=== PATIENT | male | born 1990 | race African-American/Black ===

== ENCOUNTER 2017-06-27 18:41 | Inpatient (IN) | payer SELFPAY ==
[~2017-06-27] VITALS: Ht 177.8 cm; Wt 116.9 kg
[2017-06-27] VITALS (7 sets, daily range): BP systolic 138–220; BP diastolic 72–113; PULSE 62–74; RESP 16–22; TEMP 98.7–99.9; O2SAT 95–100
[~2017-06-27 18:41] MED LIST: CEPH-460 PO
[2017-06-27] MEDS ORDERED: ONDANSETRON HCL 4 MG/2 ML VIAL ONE (19:10)
--- NOTE | 2017-06-27 19:12 | PD ---
HPI Chief Complaint: Cold / Flu Symptoms Time Seen by Provider: 18:55 Travel History International Travel<30 days: No Contact w/Intl Traveler<30days: No Traveled to known affect area: No History of Present Illness HPI Patient is a 26-year-old male presenting to the emergency department for evaluation of cold and flu symptoms. Patient presents with 1 week of a sore throat, nasal congestion, shortness of breath. He denies any documented fevers. He reports nausea but no vomiting, abdominal pain, diarrhea, headache. He states that he can barely swallow, and reports decreased appetite. Symptom onset was gradual, symptoms are severe in nature. No alleviating factors. Patient reports a history of hypertension, currently on no medications. [facility] Past Medical History ADD: Yes ADHD: Yes Headaches: Yes Hypertension: Yes Social History Alcohol Use: No (DENIES ETOH ) Tobacco Use: Yes Substance Use: No (DENIES SUBSTANCE ABUSE ) Allergies-Medications (Allergen,Severity, Reaction): Coded Allergies: No Known Allergies (Verified Adverse Reaction, Unknown, 06/27/17) Reported Meds & Prescriptions Reported Meds & Active Scripts Active No Active Prescriptions or Reported Medications Review of Systems Except as stated in HPI: all other systems reviewed are Neg General / Constitutional: Positive: Chills HENT: Positive: Sore Throat, Rhinitis, Congestion, No: Headaches, Neck Pain Cardiovascular: No: Chest Pain or Discomfort Respiratory: Positive: Cough, Shortness of Breath Gastrointestinal: Positive: Nausea, No: Vomiting, Abdominal Pain Genitourinary: No: Dysuria Musculoskeletal: No: Myalgias Physical Exam Narrative GENERAL: Well-developed, well-nourished, alert -[place] male. Presenting in no acute distress. SKIN: Warm and dry. HEAD: Atraumatic. Normocephalic. EYES: Pupils equal and round. No scleral icterus. No injection or drainage. ENT: No nasal bleeding or discharge. Mucous membranes pink and moist. 3+ tonsillar hypertrophy, tonsils are touching the uvula, erythema and exudates noted. No stridor noted on exam. NECK: Trachea midline. No JVD. Positive cervical lymphadenopathy CARDIOVASCULAR: Regular rate and rhythm. RESPIRATORY: No accessory muscle use. Clear to auscultation. Breath sounds equal bilaterally. GASTROINTESTINAL: Abdomen soft, non-tender, nondistended. Hepatic and splenic margins not palpable. MUSCULOSKELETAL: Extremities without clubbing, cyanosis, or edema. No obvious deformities. NEUROLOGICAL: Awake and alert. No obvious cranial nerve deficits. Motor grossly within normal limits. Five out of 5 muscle strength in the arms and legs. Normal speech. PSYCHIATRIC: Appropriate mood and affect; insight and judgment normal. Data Data Last Documented VS Vital Signs Date Time Temp Pulse Resp B/P (MAP) Pulse Ox O2 Delivery O2 Flow Rate FiO2 06/27/17 20:35 62 16 138/83 (101) 98 Room Air 06/27/17 18:47 99.9 Orders Orders Complete Blood Count With Diff (06/27/17 19:01) Group A Rapid Strep Screen (06/27/17 19:01) Ct Soft Tiss Neck W Iv Cont (06/27/17 19:01) Dexamethasone Inj (Decadron Inj) (06/27/17 19:15) Sodium Chloride 0.9% Flush (Ns Flush) (06/27/17 19:15) Comprehensive Metabolic Panel (06/27/17 19:01) Sodium Chlor 0.9% 1000 Ml Inj (Ns 1000 M (06/27/17 19:15) Ibuprofen Liq (Motrin Liq) (06/27/17 19:15) Iv Access Insert/Monitor (06/27/17 19:03) Ecg Monitoring (06/27/17 19:03) Oximetry (06/27/17 19:03) Sodium Chloride 0.9% Flush (Ns Flush) (06/27/17 19:15) Ondansetron Inj (Zofran Inj) (06/27/17 19:15) Ondansetron Inj (Zofran Inj) (06/27/17 19:10) Strep Culture (Group A) (06/27/17 19:20) Monoscreen (06/27/17 20:15) Iohexol 350 Inj (Omnipaque 350 Inj) (06/27/17 21:05) Clindamycin 900 Mg/Ns Premix (Cleocin 90 (06/27/17 21:30) Admit Order (Ed Use Only) (06/27/17 21:49) Labs Laboratory Tests Test 06/27/17 19:20 06/27/17 19:29 Blood Urea Nitrogen 5 MG/DL Creatinine 0.98 MG/DL Random Glucose 100 MG/DL Total Protein 8.2 GM/DL Albumin 3.9 GM/DL Calcium Level 9.6 MG/DL Alkaline Phosphatase 69 U/L Aspartate Amino Transf (AST/SGOT) 22 U/L Alanine Aminotransferase (ALT/SGPT) 25 U/L Total Bilirubin 0.7 MG/DL Sodium Level 139 MEQ/L Potassium Level 3.7 MEQ/L Chloride Level 103 MEQ/L Carbon Dioxide Level 28.2 MEQ/L Anion Gap 8 MEQ/L Estimat Glomerular Filtration Rate 111 ML/MIN White Blood Count 7.6 TH/MM3 Red Blood Count 5.16 MIL/MM3 Hemoglobin 15.1 GM/DL Hematocrit 44.9 % Mean Corpuscular Volume 86.9 FL Mean Corpuscular Hemoglobin 29.2 PG Mean Corpuscular Hemoglobin Concent 33.6 % Red Cell Distribution Width 13.5 % Platelet Count 163 TH/MM3 Mean Platelet Volume 8.5 FL Neutrophils (%) (Auto) 69.1 % Lymphocytes (%) (Auto) 14.1 % Monocytes (%) (Auto) 15.2 % Eosinophils (%) (Auto) 1.2 % Basophils (%) (Auto) 0.4 % Neutrophils # (Auto) 5.2 TH/MM3 Lymphocytes # (Auto) 1.1 TH/MM3 Monocytes # (Auto) 1.1 TH/MM3 Eosinophils # (Auto) 0.1 TH/MM3 Basophils # (Auto) 0.0 TH/MM3 CBC Comment DIFF FINAL Differential Comment MDM Medical Decision Making Medical Screen Exam Complete: Yes Emergency Medical Condition: Yes Interpretation(s) Vital Signs Last Impressions Neck CT 06/27/17 1901 Signed Impressions: Service Date/Time: Tuesday, June 27, 2017 20:55 - CONCLUSION: 1. Tonsillar hypertrophy without focal mass or abscess. 2. Cervical lymphadenopathy is identified diffusely. 3. Mild prevertebral edema identified. Soto Maza MD Laboratory Tests Test 06/27/17 19:20 06/27/17 19:29 Blood Urea Nitrogen 5 MG/DL Creatinine 0.98 MG/DL Random Glucose 100 MG/DL Total Protein 8.2 GM/DL Albumin 3.9 GM/DL Calcium Level 9.6 MG/DL Alkaline Phosphatase 69 U/L Aspartate Amino Transf (AST/SGOT) 22 U/L Alanine Aminotransferase (ALT/SGPT) 25 U/L Total Bilirubin 0.7 MG/DL Sodium Level 139 MEQ/L Potassium Level 3.7 MEQ/L Chloride Level 103 MEQ/L Carbon Dioxide Level 28.2 MEQ/L Anion Gap 8 MEQ/L Estimat Glomerular Filtration Rate 111 ML/MIN White Blood Count 7.6 TH/MM3 Red Blood Count 5.16 MIL/MM3 Hemoglobin 15.1 GM/DL Hematocrit 44.9 % Mean Corpuscular Volume 86.9 FL Mean Corpuscular Hemoglobin 29.2 PG Mean Corpuscular Hemoglobin Concent 33.6 % Red Cell Distribution Width 13.5 % Platelet Count 163 TH/MM3 Mean Platelet Volume 8.5 FL Neutrophils (%) (Auto) 69.1 % Lymphocytes (%) (Auto) 14.1 % Monocytes (%) (Auto) 15.2 % Eosinophils (%) (Auto) 1.2 % Basophils (%) (Auto) 0.4 % Neutrophils # (Auto) 5.2 TH/MM3 Lymphocytes # (Auto) 1.1 TH/MM3 Monocytes # (Auto) 1.1 TH/MM3 Eosinophils # (Auto) 0.1 TH/MM3 Basophils # (Auto) 0.0 TH/MM3 CBC Comment DIFF FINAL Differential Comment Date Time Temp Pulse Resp B/P (MAP) Pulse Ox O2 Delivery O2 Flow Rate FiO2 06/27/17 20:35 62 16 138/83 (101) 98 Room Air 06/27/17 20:00 62 18 179/79 (112) 99 Room Air 06/27/17 19:45 99 Room Air 06/27/17 19:40 65 20 178/97 (124) 99 Room Air 06/27/17 18:47 99.9 74 22 220/113 (148) 95 Differential Diagnosis Strep pharyngitis versus abscess versus viral syndrome versus metabolic abnormality versus respiratory compromise versus other Narrative Course Patient is a 26-year-old male presenting to emergency department for evaluation of cold and flulike symptoms. On exam patient's tonsils are touching the uvula and are erythematous with exudates. Patient has a low-grade temp and is hypertensive. Labs and imaging ordered and pending. Solu-Medrol, Zofran, IV fluids and liquid ibuprofen ordered. CBC with elevated monocytes at 15.2 Chemistry with no acute findings. Rapid strep is negative CT of the neck shows tonsillar hypertrophy without focal mass or abscess. Cervical lymphadenopathy is identified diffusely. Mild prevertebral edema is identified. Clindamycin 900 mg IV 1 dose has been ordered. Discussed findings with my attending physician, we will admit to medicine, placing patient in the intensive care unit to monitor airway. Discussed findings and plan of care with patient and his mother, patient is agreeable to stay. Patient's blood pressure has trended down. Diagnosis Primary Impression: Acute suppurative tonsillitis Additional Impression: Airway compromise Admitting Information Admitting Physician Requests: Admit Scripts No Active Prescriptions or Reported Meds Condition: Stable Audra Preciado [facility] Jun 27, 2017 19:12
[2017-06-27] MEDS ORDERED: ONDANSETRON HCL 4 MG/2 ML VIAL IV PUSH ONE (19:15)
[2017-06-27] MEDS ORDERED: IBUPROFEN SUSP 100 MG/5 ML UDC PO ONE (19:15)
[2017-06-27] MEDS ORDERED: SODIUM CHLOR 0.9% 1000 ML INJ 1,000 ML IV ONE (19:15)
[2017-06-27] MEDS ORDERED: DEXAMETHASONE SOD PHOS 4 MG/ML VIAL IV PUSH ONE (19:15)
[2017-06-27] MEDS ORDERED: SODIUM CHLORIDE 0.9% FLUSH 10 ML FLUSH IVF PRN (19:15)
[2017-06-27] MEDS ORDERED: SODIUM CHLORIDE 0.9% FLUSH 10 ML FLUSH IV FLUSH PRN ×2 (19:15→22:15)
[2017-06-27 19:52] LABS: AUTOMATED NEUTROPHIL # 5.2 TH/MM3 (1.8-7.7); BASOPHIL % 0.4 % (0.0-2.0); EOSINOPHIL # 0.1 TH/MM3 (0-0.4); EOSINOPHIL % 1.2 % (0.0-4.0); HEMATOCRIT 44.9 % (39.0-51.0); HEMOGLOBIN 15.1 GM/DL (13.0-17.0); LYMPH % 14.1 % (9.0-44.0); LYMPHOCYTE # 1.1 TH/MM3 (1.0-4.8); MEAN CELL VOLUME 86.9 FL (80.0-100.0); MEAN CORPUSCULAR HEMOGLOBIN 29.2 PG (27.0-34.0); MEAN CORPUSCULAR HGB CONC 33.6 % (32.0-36.0); MEAN PLATELET VOLUME 8.5 FL (7.0-11.0); MONO % 15.2 % (0.0-8.0); MONOCYTE # 1.1 TH/MM3 (0-0.9); NEUT % 69.1 % (16.0-70.0); PLATELET COUNT 163 TH/MM3 (150-450); RED BLOOD COUNT 5.16 MIL/MM3 (4.50-5.90); RED CELL DISTRIBUTION WIDTH 13.5 % (11.6-17.2); WHITE BLOOD COUNT 7.6 TH/MM3 (4.0-11.0)
[2017-06-27 20:18] LABS: ALBUMIN 3.9 GM/DL (3.4-5.0); AST (GOT) 22 U/L (15-37); BICARBONATE 28.2 MEQ/L (21.0-32.0); BLOOD UREA NITROGEN 5 MG/DL (7-18); CALCIUM 9.6 MG/DL (8.5-10.1); CHLORIDE 103 MEQ/L (98-107); CREATININE 0.98 MG/DL (0.60-1.30); GLOMERULAR FILTRATION RATE 111 ML/MIN (>89); GLUCOSE,RANDOM 100 MG/DL (74-106); SODIUM (NA) 139 MEQ/L (136-145)
[2017-06-27 20:19] LABS: ALT (GPT) 25 U/L (12-78)
[2017-06-27 20:21] LABS: ALKALINE PHOSPHATASE 69 U/L (45-117); TOTAL BILIRUBIN ADULT 0.7 MG/DL (0.2-1.0); TOTAL PROTEIN 8.2 GM/DL (6.4-8.2)
[2017-06-27] MEDS ORDERED: IOHEXOL 350 MG/ML 10 ML VIAL (for RAD DIAG) IVCONTRAST ONE (21:05)
--- NOTE | 2017-06-27 21:13 | RADRPT ---
EXAM DATE/TIME: 06/27/2017 20:55 [place] COMPARISON: No previous studies available for comparison. INDICATIONS : Sore throat IV CONTRAST: 95 cc Omnipaque 350 (iohexol) IV RADIATION DOSE: 16.39 CTDIvol (mGy) MEDICAL HISTORY : Hypertension. SURGICAL HISTORY : None. ENCOUNTER: Initial ACUITY: 1 day PAIN SCALE: 7/10 LOCATION: throat TECHNIQUE: Volumetric scanning of the neck was performed. Using automated exposure control and adjustment of th e mA and/or kV according to patient size, radiation dose was kept as low as reasonably achievable to obtain optimal diagnostic quality images. DICOM format image data is available electronically for r eview and comparison. FINDINGS: NASOPHARYNX: There is marked adenoidal hypertrophy without focal mass. OROPHARYNX: The intrinsic muscles of the tongue are symmetric. The tonsillar pillars are enlarged bilaterally. T here is prevertebral edema identified with edema in the retropharyngeal soft tissues. LARYNX: The supraglottic, glottic, and infraglottic structures are intact. PARAPHARYNGEAL: The parapharyngeal space is intact. SALIVARY GLANDS: The parotid and submandibular glands are intact. LYMPH NODES: Bilateral cervical adenopathy up to 2.4 cm on the left and 1.9 cm in short axis dimension on the righ t. THYROID: Homogeneous enhancement without evidence of nodule. BONES: Unremarkable. CONCLUSION: 1. Tonsillar hypertrophy without focal mass or abscess. 2. Cervical lymphadenopathy is identified diffusely. 3. Mild prevertebral edema identified. Soto Maza MD on June 27, 2017 at 21:08 Board Certified Radiologist. This report was verified electronically.
[2017-06-27] MEDS ORDERED: CLINDAMYCIN 900 MG/NS PREMIX 50 ML IV ONE (21:30)
[2017-06-27] MEDS ORDERED: SODIUM CHLOR 0.9% 1000 ML INJ 1,000 ML IV SCH (22:04)
[2017-06-27 22:15] LABS: MONOSCREEN NEG (NEG)
[2017-06-27] MEDS ORDERED: NALOXONE HCL 0.4 MG/ML AMP IV PUSH PRN (22:15)
[2017-06-27] MEDS ORDERED: ONDANSETRON HCL 4 MG/2 ML VIAL IVP PRN (22:15)
[2017-06-27] MEDS: FAMOTIDINE 20 MG/2 ML VIAL IV PUSH SCH (22:43)
--- NOTE | 2017-06-27 23:25 | HHI.HP ---
[facility]ician No Primary Care Physician Admission Diagnosis Tonsillitis, risk for airway compromise Diagnoses: Travel History International Travel<30 Days: No Contact w/Intl Traveler <30 Da: No Traveled to Known Affected Are: No History of Present Illness 26-year-old male with no significant past medical history presents to the emergency department for evaluation of a sore throat. The patient reports symptoms started approximately 4 days ago and have progressively worsened. The patient states that last night his throat felt as though he was closing and he started having difficulty breathing. He is able to swallow but is also spitting and drooling. The patient denies subjective fever/chills. Endorses an associated cough productive of green sputum. His voice is muffled. He denies any chest pain or shortness of breath. Denies abdominal pain. No nausea /vomiting/diarrhea. Review of Systems Except as stated in HPI: all other systems reviewed are Neg Past Family Social History Past Medical History None Past Surgical History Left hip repair Reported Medications Reported Meds & Active Scripts Active No Active Prescriptions or Reported Medications Allergies: Coded Allergies: No Known Allergies (Verified Allergy, Unknown, 06/27/17) Family History Mother with diabetes mellitus Social History Denies alcohol, tobacco and illicit drugs Physical Exam Vital Signs Vital Signs Date Time Temp Pulse Resp B/P (MAP) Pulse Ox O2 Delivery O2 Flow Rate FiO2 06/27/17 22:00 68 16 156/76 (102) 98 Room Air 06/27/17 20:35 62 16 138/83 (101) 98 Room Air 06/27/17 20:00 62 18 179/79 (112) 99 Room Air 06/27/17 19:45 99 Room Air 06/27/17 19:40 65 20 178/97 (124) 99 Room Air 06/27/17 18:47 99.9 74 22 220/113 (148) 95 Physical Exam GENERAL: male sitting up in bed SKIN: No rashes, ecchymoses or lesions. Cool and dry. HEAD: Atraumatic. Normocephalic. No temporal or scalp tenderness. EYES: Pupils equal round and reactive. Extraocular motions intact. No scleral icterus. No injection or drainage. ENT: Nose without bleeding, purulent drainage or septal hematoma. Throat with 3 + tonsillar hypertrophy. No exudate noted. No stridor on exam however the patient does have a muffled voice and is spitting some of his secretions. NECK: Trachea midline. No JVD or lymphadenopathy. Supple, nontender, no meningeal signs. CARDIOVASCULAR: Regular rate and rhythm without murmurs, gallops, or rubs. RESPIRATORY: Clear to auscultation. Breath sounds equal bilaterally. No wheezes , rales, or rhonchi. GASTROINTESTINAL: Abdomen soft, non-tender, nondistended. No hepato-splenomegaly , or palpable masses. No guarding. MUSCULOSKELETAL: Extremities without clubbing, cyanosis, or edema. No joint tenderness, effusion, or edema noted. No calf tenderness. NEUROLOGICAL: Awake and alert. Cranial nerves II through XII intact. Motor and sensory grossly within normal limits. Normal speech. Laboratory Laboratory Tests Test 06/27/17 19:20 06/27/17 19:29 06/27/17 21:25 Blood Urea Nitrogen 5 Creatinine 0.98 Random Glucose 100 Total Protein 8.2 Albumin 3.9 Calcium Level 9.6 Alkaline Phosphatase 69 Aspartate Amino Transf (AST/SGOT) 22 Alanine Aminotransferase (ALT/SGPT) 25 Total Bilirubin 0.7 Sodium Level 139 Potassium Level 3.7 Chloride Level 103 Carbon Dioxide Level 28.2 Anion Gap 8 Estimat Glomerular Filtration Rate 111 White Blood Count 7.6 Red Blood Count 5.16 Hemoglobin 15.1 Hematocrit 44.9 Mean Corpuscular Volume 86.9 Mean Corpuscular Hemoglobin 29.2 Mean Corpuscular Hemoglobin Concent 33.6 Red Cell Distribution Width 13.5 Platelet Count 163 Mean Platelet Volume 8.5 Neutrophils (%) (Auto) 69.1 Lymphocytes (%) (Auto) 14.1 Monocytes (%) (Auto) 15.2 Eosinophils (%) (Auto) 1.2 Basophils (%) (Auto) 0.4 Neutrophils # (Auto) 5.2 Lymphocytes # (Auto) 1.1 Monocytes # (Auto) 1.1 Eosinophils # (Auto) 0.1 Basophils # (Auto) 0.0 CBC Comment DIFF FINAL Differential Comment Monoscreen NEG Date/Time Source Procedure Growth Status 06/27/17 19:20 Throat Group A Streptococcus Screen Pending Received Result Diagram: 06/27/17192806/27/171919 Caprini VTE Risk Assessment Caprini VTE Risk Assessment: No/Low Risk (score <= 1) Caprini Risk Assessment Model Point Value = 1 Point Value = 2 Point Value = 3 Point Value = 5 Age 41-60 Minor surgery BMI > 25 kg/m2 Swollen legs Varicose veins or History of unexplained or recurrent spontaneous Oral contraceptives or hormone replacement Sepsis (< 1 month) Serious lung disease, including pneumonia (< 1 month) Abnormal pulmonary function Acute myocardial infarction Congestive heart failure (< 1 month) History of inflammatory bowel disease Medical patient at bed rest Age 61-74 Arthroscopic surgery Major open surgery (> 45 min) Laparoscopic surgery (> 45 min) Malignancy Confined to bed (> 72 hours) Immobilizing plaster cast Central venous access Age >= 75 History of VTE Family history of VTE Factor V Leiden Prothrombin [id number] Lupus anticoagulant Anticardiolipin antibodies Elevated serum homocysteine Heparin-induced thrombocytopenia Other congenital or acquired thrombophilia Stroke (< 1 month) Elective arthroplasty Hip, pelvis, or leg fracture Acute spinal cord injury (< 1 month) Prophylaxis Regimen Total Risk Factor Score Risk Level Prophylaxis Regimen 0-1 Low Early ambulation 2 Moderate Order ONE of the following: *Sequential Compression Device (SCD) *Heparin 5000 units SQ BID 3-4 Higher Order ONE of the following medications: *Heparin 5000 units SQ TID *Enoxaparin/Lovenox 40 mg SQ daily (WT < 150 kg, CrCl > 30 mL/min) *Enoxaparin/Lovenox 30 mg SQ daily (WT < 150 kg, CrCl > 10-29 mL/min) *Enoxaparin/Lovenox 30 mg SQ BID (WT < 150 kg, CrCl > 30 mL/min) AND/OR *Sequential Compression Device (SCD) 5 or more Highest Order ONE of the following medications: *Heparin 5000 units SQ TID (Preferred with Epidurals) *Enoxaparin/Lovenox 40 mg SQ daily (WT < 150 kg, CrCl > 30 mL/min) *Enoxaparin/Lovenox 30 mg SQ daily (WT < 150 kg, CrCl > 10-29 mL/min) *Enoxaparin/Lovenox 30 mg SQ BID (WT < 150 kg, CrCl > 30 mL/min) AND *Sequential Compression Device (SCD) Assessment and Plan Assessment and Plan Assessment/plan: 1. Tonsillitis Neck CT significant for tonsillar hypertrophy without focal mass or abscess and accompanying cervical lymphadenopathy Rapid strep negative, culture pending Clindamycin Dexamethasone Patient will be admitted to the ICU for close airway monitoring - monitor for signs of airway obstruction/compromise If symptoms persist or worsen, will consult ENT FEN Soft diet NS at 100 cc/hr Electrolytes: monitor and replete prn Ambulation Physician Certification 2 Midnight Certification Type: Admission for Inpatient Services Order for Inpatient Services The services are ordered in accordance with Medicare regulations or non- Medicare payer requirements, as applicable. In the case of services not specified as inpatient-only, they are appropriately provided as inpatient services in accordance with the 2-midnight benchmark. Estimated LOS (days): 2 2 days is the estimated time the patient will need to remain in the hospital, assuming treatment plan goals are met and no additional complications. Post-Hospital Plan: Not yet determined Loraine Tillman MD Jun 27, 2017 23:25
[2017-06-28] VITALS (12 sets, daily range): BP systolic 139–169; BP diastolic 65–114; PULSE 44–80; RESP 18–32; TEMP 97.7–98.6; O2SAT 96–100
[2017-06-28] MEDS ORDERED: CHLORHEXIDINE GLUCONATE 2 % 1 PACK (2 CLOTHS)(extra cloths) TOPICAL PRN (00:30)
[2017-06-28] MEDS: CHLORHEXIDINE GLUCONATE 2 % 1 PACK (2 CLOTHS)(taper/protocol) TOPICAL SCH (04:00)
[2017-06-28] MEDS: CLINDAMYCIN INJ 600 MG in SODIUM CHLORIDE 0.9% INJ 100 ML IV SCH ×4 (05:26→21:23)
[2017-06-28] MEDS: DEXAMETHASONE SOD PHOS 4 MG/ML VIAL IV PUSH SCH ×4 (05:26→18:01)
[2017-06-28] MEDS: SODIUM CHLORIDE 0.9% FLUSH 10 ML FLUSH IV FLUSH SCH ×2 (05:27→21:23)
--- NOTE | 2017-06-28 08:51 | HHI.PR ---
Subjective Remarks Follow up tonsillitis, elevated blood pressure. The patient wants to go home. He states that he needs to get back to work. He states that his throat feels better. He states that he can swallow liquids. No cough, dyspnea, wheeze. Objective Vitals Vital Signs Date Time Temp Pulse Resp B/P (MAP) Pulse Ox O2 Delivery O2 Flow Rate FiO2 06/28/17 06:00 44 06/28/17 04:00 44 06/28/17 03:00 98.6 53 32 169/114 (132) 100 06/28/17 02:00 56 06/28/17 00:00 54 06/27/17 23:51 98.7 74 20 164/97 (119) 100 06/27/17 23:45 98.7 62 16 160/72 (101) 98 06/27/17 22:00 68 16 156/76 (102) 98 Room Air 06/27/17 20:35 62 16 138/83 (101) 98 Room Air 06/27/17 20:00 62 18 179/79 (112) 99 Room Air 06/27/17 19:45 99 Room Air 06/27/17 19:40 65 20 178/97 (124) 99 Room Air 06/27/17 18:47 99.9 74 22 220/113 (148) 95 I/O 06/27/17 06/27/17 06/27/17 06/28/17 06/28/17 06/28/17 07:00 15:00 23:00 07:00 15:00 23:00 Intake Total 1000 ml Output Total 2000 ml Balance 1000 ml -2000 ml Intake IV Total 1000 ml Output Urine Total 2000 ml Result Diagram: 06/27/17192806/27/171919 Imaging Last Impressions Neck CT 06/27/171900 Signed Impressions: Service Date/Time: Tuesday, June 27, 2017 20:55 - CONCLUSION: 1. Tonsillar hypertrophy without focal mass or abscess. 2. Cervical lymphadenopathy is identified diffusely. 3. Mild prevertebral edema identified. Soto Maza MD Objective Remarks General: No acute distress. HEENT: 3+ tonsillar hypertrophy. No exudate noted. Patient's voice remains muffled. Heart: Regular rate and rhythm. No murmur. Lungs: Clear to auscultation bilaterally. No wheezes, rales, or rhonchi. Breathing is nonlabored. Abdomen: Soft, nontender, nondistended. Extremities: No lower extremity edema. Psych: Alert and oriented. Procedures None Urinary Catheter: No Vascular Central Line Catheter: No A/P Assessment and Plan 1. Tonsillitis: Next CT shows tonsillar hypertrophy without focal mass or abscess. There is also cervical lymphadenopathy. Rapid strep negative. Continue antibiotics, steroids. 2. Elevated blood pressure: Patient may have undiagnosed hypertension, but blood pressure is likely elevated secondary to agitation. Patient is quite anxious to get out of the hospital. 3. DVT prophylaxis: SCDs Discharge Planning Transfer to medical/surgical floor. Anticipate discharge home soon if patient continues to improve clinically. Bull Zheng MD Jun 28, 2017 08:51
[2017-06-28] MEDS: FAMOTIDINE 20 MG/2 ML VIAL IV PUSH SCH (09:00)
[2017-06-29] VITALS: PULSE 62
[2017-06-29 00:01] VITALS: BP 157/75; PULSE 101; RESP 18; TEMP 97.8
[2017-06-29 04:00] VITALS: PULSE 52
[2017-06-29] MEDS: CHLORHEXIDINE GLUCONATE 2 % 1 PACK (2 CLOTHS)(taper/protocol) TOPICAL SCH (04:00)
[2017-06-29 04:58] VITALS: BP 148/85; PULSE 85; RESP 16; TEMP 97.6; O2SAT 100
[2017-06-29] MEDS: CLINDAMYCIN INJ 600 MG in SODIUM CHLORIDE 0.9% INJ 100 ML IV SCH (05:19)
[2017-06-29] MEDS: DEXAMETHASONE SOD PHOS 4 MG/ML VIAL IV PUSH SCH ×2 (05:20)
[2017-06-29 08:00] VITALS: BP 164/95; PULSE 52; RESP 19; TEMP 97.7; O2SAT 95
[2017-06-29] MEDS ORDERED: CLIN300C5 PO (08:44)
[2017-06-29] MEDS ORDERED: PRED5PAK PO (08:44)
[2017-06-29] MEDS ORDERED: LACTCHW3 CHEW (08:44)
--- NOTE | 2017-06-29 08:45 | HHI.DCPOC ---
Discharge Care Plan Diagnosis: (1) Acute tonsillitis Goals to Promote Your Health * To prevent worsening of your condition and complications * To maintain your health at the optimal level Directions to Meet Your Goals Take your medications as prescribed Follow your dietary instruction Follow activity as directed Keep your appointments as scheduled Take your immunizations and boosters as scheduled If your symptoms worsen call your PCP, if no PCP go to Urgent Care Center or Emergency Room Smoking is Dangerous to Your Health. Avoid second hand smoke Call the 24-hour hour crisis hotline for domestic abuse at Bull Zheng MD Jun 29, 2017 08:45
--- NOTE | 2017-06-29 08:48 | HHI.PR ---
Subjective Remarks Follow up tonsillitis. Patient states that he feels "back to normal". No complaints this morning. Wants to go home. No dyspnea or difficulty swallowing. Objective Vitals Vital Signs Date Time Temp Pulse Resp B/P (MAP) Pulse Ox O2 Delivery O2 Flow Rate FiO2 06/29/17 04:58 97.6 85 16 148/85 (106) 100 06/29/17 04:00 52 06/29/17 00:01 97.8 101 18 157/75 (102) 06/29/17 00:00 62 06/28/17 20:42 98.3 80 18 162/77 (105) 97 06/28/17 20:00 59 06/28/17 16:00 98.3 54 20 152/96 (114) 96 06/28/17 14:00 58 06/28/17 12:00 73 06/28/17 12:00 98.0 73 23 143/77 (99) 06/28/17 10:00 61 I/O 06/28/17 06/28/17 06/28/17 06/29/17 06/29/17 06/29/17 07:00 15:00 23:00 07:00 15:00 23:00 Intake Total 1154 ml 240 ml Output Total 2000 ml 550 ml 350 ml Balance -2000 ml 604 ml -110 ml Intake Oral 240 ml 240 ml IV Total 914 ml Output Urine Total 2000 ml 550 ml 350 ml Result Diagram: 06/27/17192806/27/171919 Imaging Last Impressions Neck CT 06/27/171900 Signed Impressions: Service Date/Time: Tuesday, June 27, 2017 20:55 - CONCLUSION: 1. Tonsillar hypertrophy without focal mass or abscess. 2. Cervical lymphadenopathy is identified diffusely. 3. Mild prevertebral edema identified. Soto Maza MD Objective Remarks General: No acute distress. HEENT: 2+ tonsillar hypertrophy. No exudate noted. Patient's voice remains muffled. Heart: Regular rate and rhythm. No murmur. Lungs: Clear to auscultation bilaterally. No wheezes, rales, or rhonchi. Breathing is nonlabored. Abdomen: Soft, nontender, nondistended. Extremities: No lower extremity edema. Psych: Alert and oriented. Procedures None Urinary Catheter: No Vascular Central Line Catheter: No A/P Assessment and Plan 1. Tonsillitis: Next CT shows tonsillar hypertrophy without focal mass or abscess. There is also cervical lymphadenopathy. Rapid strep negative. Continue antibiotics, steroids. Clinically improving. 2. Elevated blood pressure: Patient may have undiagnosed hypertension, but blood pressure is likely elevated secondary to agitation. Patient is quite anxious to get out of the hospital. BP has been better this morning. Advise outpatient follow up. 3. DVT prophylaxis: SCDs Discharge Planning Discharge home in stable condition. Follow up with PCP. Return if symptoms worsen or any difficulty breathing. Activity as tolerated. Regular diet. Bull Zheng MD Jun 29, 2017 08:48
[2017-06-29] MEDS: SODIUM CHLORIDE 0.9% FLUSH 10 ML FLUSH IV FLUSH SCH (09:00)
[2017-06-29] MEDS: FAMOTIDINE 20 MG/2 ML VIAL IV PUSH SCH (09:00)
== END 2017-06-29 09:14 | disposition home or self-care (01) | DRG 156 ==
LOC: NEPD 18:41 → NEDA 21:51 → HIMN 23:45 → N05A 06-28 15:48
PROVIDERS: ADMIT Family Medicine; ATTEND Family Medicine
DX: J35.1 Hypertrophy of tonsils (principal); I10 Essential (primary) hypertension; R59.1 Generalized enlarged lymph nodes; F90.9 Attention-deficit hyperactivity disorder, unspecified type; R06.02 Shortness of breath; R09.81 Nasal congestion; R05 Cough; Z72.0 Tobacco use
CPT/HCPCS: 70491; 80053; 85025; 86308; 86403; 87081; 87641; 87880; 96361; 96374; 96375; J1100; J2405; J7030; Q9967